=== PATIENT | female | born 1990 | race Hispanic/Latino ===

== ENCOUNTER → 2019-04-21 | Outpatient (CLI) | payer BC | LOC: GMAF 10:53 | PROVIDERS: ATTEND Nurse Practitioner Family | DX: R53.82 Chronic fatigue, unspecified (principal) ==

== ENCOUNTER 2019-07-23 14:46 | Emergency (ER) | payer BC ==
--- NOTE | 2019-07-23 15:20 | ED.PDOC ---
History of Present Illness - General Chief Complaint: Back Pain or Injury Stated Complaint: Low back pain (non-trauma) Time Seen by Provider: 07/23/19 15:17 - History of Present Illness Initial Comments: Pt c/o having lower back pain since yesterday going up to thorax , started exercise yesterday which made it worse , no injury , no problem with urine or numbness and weakness in legs Allergies/Adverse Reactions: Allergies NO KNOWN ALLERGY Allergy (Verified 07/23/19 15:14) Home Medications: Ambulatory Orders Citalopram Hydrobromide 10 mg PO DAILY 07/23/19 Gabapentin 300 mg PO BID PRN 07/23/19 Naproxen [Naprosyn] 500 mg PO BID #10 tab 07/23/19 RX: Baclofen 20 mg PO TID #12 tab 07/23/19 Review of Systems - Review of Systems Constitutional: States: no symptoms reported EENTM: States: no symptoms reported Respiratory: States: no symptoms reported Cardiology: States: no symptoms reported Gastrointestinal/Abdominal: States: no symptoms reported Genitourinary: States: no symptoms reported Musculoskeletal: States: see HPI Skin: States: no symptoms reported Neurological: States: no symptoms reported Endocrine: States: no symptoms reported Hematologic/Lymphatic: States: no symptoms reported Past Medical History (General) - Patient Medical History Hx Seizures: No Hx Stroke: No Hx Dementia: No Hx Asthma: No Hx of COPD: No Hx Cardiac Disorders: No Hx Congestive Heart Failure: No Hx Pacemaker: No Hx Hypertension: No Hx Thyroid Disease: Yes - hypo Hx Diabetes: No Hx Gastroesophageal Reflux: No Hx Renal Disease: No Hx Cancer: No Hx of HIV: No Hx Hepatitis C: No Hx MRSA: No Surgical History: no surgical history - Vaccination History Hx Tetanus, Diphtheria Vaccination: No Hx Influenza Vaccination: No Hx Pneumococcal Vaccination: No - Social History Hx Tobacco Use: Yes Hx Alcohol Use: Yes Hx Substance Use: No Hx Substance Use Treatment: No Hx Depression: Yes - Female History Patient is a Female of Child Bearing Age (10 -59 yrs old): Yes Hx Last Menstrual Period: 06/21/14 Patient : No - Denies Family Medical History - Family History Mother Family History: No Known Living Status: Still Living Hx Family Hypertension: Yes Physical Exam - Physical Exam General Appearance: Alert, Comfortable Eyes, Ears, Nose, Throat Exam: PERRL/EOMI Neck Exam: non-tender, full range of motion, normal alignment, normal inspection Cardiovascular/Respiratory: regular rate, rhythm, no M/R/G, normal peripheral pulses, no JVD, normal breath sounds Back Exam: normal inspection, vertebral tenderness Extremity Exam: normal range of motion, non-tender Neurologic: no motor/sensory deficits, alert, normal mood/affect, oriented x 3 Skin Exam: normal color, warm/dry Progress - Progress Progress: 07/23/19 17:00 07/23/19 16:07 CARDIAC PANEL,ER Stat D-DIMER,QUANTITATIVE Stat Sodium Chloride 0.9% (Flush) [Saline Flush Syringe] 10 ml IV PRN PRN Pulse Ox Stat 07/23/19 16:16 Chest,1 View [RAD] Stat Lumbar Spine 5 Views [RAD] Stat 07/23/19 16:38 TROPONIN-I Stat EKG .ONCE Laboratory Results Pt about of discharge but started vomiting , so labs and X-ray done and reviewed with pt better after taking zofran WBC 8.7 K/mm3 (4.8-10.8) 07/23/19 16:15 RBC 4.55 M/mm3 (4.20-5.40) 07/23/19 16:15 Hgb 12.9 gm/dL (12.0-16.0) 07/23/19 16:15 Hct 38.1 % (36.0-47.0) 07/23/19 16:15 MCV 83.8 fl (81.0-99.0) 07/23/19 16:15 MCH 28.3 pg (27.0-31.0) 07/23/19 16:15 MCHC 33.8 g/dL (33.0-37.0) 07/23/19 16:15 RDW 14.5 % (11.5-14.5) 07/23/19 16:15 Plt Count 291 K/mm3 (130-400) 07/23/19 16:15 MPV 7.8 fl (7.40-10.4) 07/23/19 16:15 Absolute Neuts (auto) 4.40 K/uL (1.8-6.8) 07/23/19 16:15 Absolute Lymphs (auto) 3.70 K/uL (1.0-3.4) H 07/23/19 16:15 Absolute Monos (auto) 0.50 K/uL (0.2-0.8) 07/23/19 16:15 Absolute Eos (auto) 0.20 K/uL (0.0-0.4) 07/23/19 16:15 Absolute Basos (auto) 0.00 K/uL (0.0-0.1) 07/23/19 16:15 Neutrophils % 49.9 % (42.0-78.0) 07/23/19 16:15 Lymphocytes % 42.5 % (20.0-50.0) 07/23/19 16:15 Monocytes % 5.4 % (2.0-9.0) 07/23/19 16:15 Eosinophils % 1.9 % (1.0-5.0) 07/23/19 16:15 Basophils % 0.3 % (0.0-2.0) 07/23/19 16:15 Sodium 138 mmol/L (135-145) 07/23/19 16:15 Potassium 3.8 mmol/L (3.6-5.0) 07/23/19 16:15 Chloride 104 mmol/L (101-111) 07/23/19 16:15 Carbon Dioxide 24 mmol/L (21-31) 07/23/19 16:15 Anion Gap 13.8 (12-18) 07/23/19 16:15 BUN 13 mg/dL (7-18) 07/23/19 16:15 Creatinine 0.81 mg/dL (0.6-1.3) 07/23/19 16:15 BUN/Creatinine Ratio 16.0 (10-20) 07/23/19 16:15 Random Glucose 119 mg/dL (70-105) H 07/23/19 16:15 Serum Osmolality 276.9 mOsm/L (275-295) 07/23/19 16:15 Calcium 9.2 mg/dL (8.4-10.2) 07/23/19 16:15 Total Bilirubin 0.3 mg/dL (0.2-1.0) 07/23/19 16:15 AST 18 IU/L (10-42) 07/23/19 16:15 ALT 13 IU/L (10-60) 07/23/19 16:15 Alkaline Phosphatase 71 IU/L (42-121) 07/23/19 16:15 Serum Total Protein 7.3 gm/dL (6.4-8.2) 07/23/19 16:15 Albumin 4.2 g/dl (3.2-5.5) 07/23/19 16:15 Globulin 3.1 gm/dL (2.3-3.5) 07/23/19 16:15 Albumin/Globulin Ratio 1.4 (1.1-1.9) 07/23/19 16:15 07/23/19 17:00 - EKG/XRAY/CT EKG: Sinus Departure - Departure Clinical Impression: Back pain, Vomiting Time of Disposition: 15:21 Disposition: Discharge to Home or Self Care Condition: Good Departure Forms: ED Discharge - Pt. Copy, Patient Portal Self Enrollment Instructions: DI for Low Back Pain Diet: resume usual diet Activity: increase activity as tolerated, walking as tolerated Referrals: Patrick Gallegos MD [Primary Care Provider] - 1-2 Weeks Prescriptions: RX: Baclofen 20 mg PO TID #12 tab Naproxen [Naprosyn] 500 mg PO BID #10 tab Home Medications: Ambulatory Orders Citalopram Hydrobromide 10 mg PO DAILY 07/23/19 Gabapentin 300 mg PO BID PRN 07/23/19 Naproxen [Naprosyn] 500 mg PO BID #10 tab 07/23/19 RX: Baclofen 20 mg PO TID #12 tab 07/23/19 Additional Instructions: Return to ER if symptoms gets worse
[2019-07-23] MEDS ORDERED: MORPHINE SULFATE INJ 10 MG/ML VIAL IM ONE (15:22)
[2019-07-23] MEDS ORDERED: diazePAM INJ 10 MG/2 ML SYG IM ONE (15:22)
[2019-07-23] MEDS ORDERED: KETOROLAC TROMETHAMINE INJ 30 MG/ML VIAL IM ONE (15:22)
[2019-07-23] MEDS ORDERED: SODIUM CHLORIDE 0.9% (FLUSH) 10 ML SYG IV PRN (16:07)
[2019-07-23] MEDS ORDERED: KETOROLAC TROMETHAMINE INJ 30 MG/ML VIAL IV ONE (16:08)
[2019-07-23] MEDS ORDERED: ONDANSETRON INJ 4 MG/2 ML VIAL IV ONE (16:15)
[2019-07-23] MEDS ORDERED: diphenhydrAMINE HCL 50 MG/ML VIAL IV ONE (17:03)
--- NOTE | 2019-07-23 17:07 | RAD ---
EXAM DESCRIPTION: Chest,1 View CLINICAL HISTORY: 29 years Female pain COMPARISON: 09/04/2015 FINDINGS: The cardiomediastinal silhouette appears unremarkable. No consolidating infiltrates or pleural effusions. No pneumothorax. IMPRESSION: No acute abnormality is identified. Electronically signed by: Yady Nunes MD 07/23/2019 5:06 PM CDT
--- NOTE | 2019-07-23 17:08 | RAD ---
EXAM DESCRIPTION: Lumbar Spine 5 Views CLINICAL HISTORY: 29 years ,Female pain COMPARISON: None. TECHNIQUE: Five views FINDINGS: Vertebral body alignment is unremarkable. No acute fractures are identified. Pedicles appear intact. No evidence of spondylolysis. IMPRESSION: No acute fracture is identified. Electronically signed by: Yady Nunes MD 07/23/2019 5:07 PM CDT
[2019-07-23 17:55] VITALS: BP 107/67; TEMP 97.5; O2SAT 100
== END 2019-07-23 17:55 | disposition home or self-care (01) ==
LOC: ER 14:46
DX: M54.5 Low back pain (principal); R11.10 Vomiting, unspecified; E07.9 Disorder of thyroid, unspecified; F32.9 Major depressive disorder, single episode, unspecified; Z87.891 Personal history of nicotine dependence; Z79.899 Other long term (current) drug therapy
CPT/HCPCS: 36415; 71045; 72114; 80053; 84484; 85025; 85379; 93005; J1200; J1885; J2270; J2405; J3360

== ENCOUNTER 2020-05-24 23:08 | Emergency (ER) | payer BC ==
[2020-05-24] MEDS ORDERED: HALOPERIDOL LACTATE INJ 5 MG/ML VIAL IM ONE (23:24)
[2020-05-24] MEDS ORDERED: KETOROLAC TROMETHAMINE INJ 60 MG/2 ML VIAL IM ONE (23:24)
[2020-05-24] MEDS ORDERED: HYDROcodone 5MG/APAP 325MG 1 EA TAB PO ONE (23:24)
--- NOTE | 2020-05-24 23:28 | ED.PDOC ---
History of Present Illness - General Chief Complaint: General Stated Complaint: body aches, numbness Time Seen by Provider: 05/24/20 23:15 - History of Present Illness Initial Comments: 30-year-old female no significant past medical history presents to ED complaining of bilateral lower extremity pain with paresthesias as well as bilateral hand paresthesias. Patient states the lower extremity paresthesias and pain have been going on for several months but progressively been getting worse. Patient's new paresthesias in bilateral hands started 1 to 2 days ago. She denies loss of sensation, weakness. Denies history of similar symptoms prior to this onset. Denies alleviating/aggravating factors. Patient is a truck chauffeur for living. No other signs, symptoms, complaints. Allergies/Adverse Reactions: Allergies NO KNOWN ALLERGY Allergy (Verified 07/23/19 15:14) Home Medications: Ambulatory Orders Baclofen 20 mg PO TID #12 tab 07/23/19 Citalopram Hydrobromide 10 mg PO DAILY 07/23/19 Gabapentin 300 mg PO BID PRN 07/23/19 Naproxen [Naprosyn] 500 mg PO BID #10 tab 07/23/19 Gabapentin [Neurontin] 300 mg PO TID PRN #15 cap 05/25/20 Review of Systems - Review of Systems Constitutional: Denies: chills, fever EENTM: Denies: blurred vision, double vision, nose congestion Respiratory: Denies: cough, short of breath Cardiology: Denies: chest pain Gastrointestinal/Abdominal: Denies: nausea, vomiting Musculoskeletal: States: joint pain, muscle pain Skin: Denies: change in color, dryness, rash Neurological: States: paresthesia. Denies: headache, numbness Hematologic/Lymphatic: Denies: blood clots, easy bruising Past Medical History (General) - Patient Medical History Hx Seizures: No Hx Stroke: No Hx Dementia: No Hx Asthma: No Hx of COPD: No Hx Cardiac Disorders: No Hx Congestive Heart Failure: No Hx Pacemaker: No Hx Hypertension: No Hx Thyroid Disease: Yes - hypo Hx Diabetes: No Hx Gastroesophageal Reflux: No Hx Renal Disease: No Hx Cancer: No Hx of HIV: No Hx Hepatitis C: No Hx MRSA: No Surgical History: no surgical history - Vaccination History Hx Tetanus, Diphtheria Vaccination: No Hx Influenza Vaccination: No Hx Pneumococcal Vaccination: No - Social History Hx Tobacco Use: No Hx Alcohol Use: Yes Hx Substance Use: No Hx Substance Use Treatment: No Hx Depression: Yes - Female History Hx Last Menstrual Period: 06/21/14 Patient : No - Denies Family Medical History - Family History Mother Family History: No Known Living Status: Still Living Hx Family Hypertension: Yes Physical Exam - Physical Exam General Appearance: Alert, Obese, Other - non-toxic, not ill appearing Eye Exam: bilateral normal, bilateral other - no scleral icterus Ears, Nose, Throat: normal ENT inspection Neck: supple, normal inspection Respiratory: lungs clear, normal breath sounds, no respiratory distress Cardiovascular/Chest: normal peripheral pulses, regular rate, rhythm, no edema, no JVD, no murmur Peripheral Pulses: radial,right: 2+, radial,left: 2+ Gastrointestinal/Abdominal: normal bowel sounds, soft Extremity: non-tender, no pedal edema Neurologic: no motor/sensory deficits, alert, normal mood/affect, oriented x 3 Skin Exam: normal color, warm/dry, other - no rash Progress - Progress Progress: Beto Adair DO Emergency Medicine Physician [id number] Appropriate PPE of surgical mask, gown, gloves, and eye protection (if encounter >5 minutes) utilized with every patient encounter; in accordance with hospital policy. Presents for bilateral hand carpal tunnel and BLE paresthesias. No clinical concern for DVT. will perform labs provide appropriate pharmacotherapy, and continue to monitor/reassess. Dispo will depend on lab results and overall course in ED; however, discharge home is expected with f/u, education, and possible rx. 00:54 Rechecked pt with family member at bedside. NAD, VSS, and is feeling better at this time. I have discussed lab results, my clinical impression, and diagnosis. I have also discussed plan for discharge home with f/u, education, a nd use of OTC Ibuprofen/Aleve as well as cryotherapy for pain control along with prescribed medication. ED return precautions provided. Pt and family member voice understanding, agree with plan, and all questions answered. - Results/Orders Results/Orders: Laboratory Results - last 24 hr 05/24/20 23:32 Sodium 139 Potassium 3.6 Chloride 104 Carbon Dioxide 24 Anion Gap 14.6 BUN 16 Creatinine 0.83 BUN/Creatinine Ratio 19.3 Random Glucose 105 Serum Osmolality 279.1 Calcium 9.0 Magnesium 2.0 TSH 1.99 Vital Signs - 24 hr 05/24/20 23:14 Temperature 97.4 F L Pulse Rate [ 82 left] Respiratory 18 Rate Blood Pressure 130/86 [Left Arm] O2 Sat by Pulse 99 Oximetry Departure - Departure Clinical Impression: Paresthesia of bilateral legs Carpal tunnel syndrome Qualifiers: Laterality: bilateral Qualified Code(s): G56.03 - Carpal tunnel syndrome, bilateral upper limbs Time of Disposition: 00:52 Disposition: Discharge to Home or Self Care Condition: Fair Departure Forms: ED Discharge - Pt. Copy, Patient Portal Self Enrollment Instructions: Paresthesia (DC), Hand Numbness, Carpal Tunnel Syndrome (DC) Activity: increase activity as tolerated Referrals: Patrick Gallegos MD [Primary Care Provider] - 05/27/20 (Discuss physical therapy for wrist (carpal tunnel) and further evaluation for both leg paresthesias.) Prescriptions: Gabapentin [Neurontin] 300 mg PO TID PRN #15 cap PRN Reason: Pain Home Medications: Ambulatory Orders Baclofen 20 mg PO TID #12 tab 07/23/19 Citalopram Hydrobromide 10 mg PO DAILY 07/23/19 Gabapentin 300 mg PO BID PRN 07/23/19 Naproxen [Naprosyn] 500 mg PO BID #10 tab 07/23/19 Gabapentin [Neurontin] 300 mg PO TID PRN #15 cap 05/25/20
[2020-05-25 01:04] VITALS: O2SAT 98
[2020-05-25 01:05] VITALS: BP 128/70
[2020-05-25 01:08] VITALS: TEMP 98
== END 2020-05-25 01:06 | disposition home or self-care (01) ==
LOC: ER 23:08
DX: R20.2 Paresthesia of skin (principal); G56.03 Carpal tunnel syndrome, bilateral upper limbs; M79.604 Pain in right leg; M79.605 Pain in left leg; F32.9 Major depressive disorder, single episode, unspecified; E03.9 Hypothyroidism, unspecified; Z79.899 Other long term (current) drug therapy
CPT/HCPCS: 80048; 83735; 84443; J1630; J1885